=== PATIENT | male | born 1960 | race Caucasian/White ===

== ENCOUNTER 2023-07-23 11:53 | Emergency (ER) | payer OTHER, MEDICAID, SELFPAY ==
[2023-07-23] VITALS (15 sets, daily range): BP systolic 128–146; BP diastolic 10–106; PULSE 104–145; RESP 14–25; TEMP 37.1; O2SAT 95–100; BMI 30.8
--- NOTE | 2023-07-23 12:08 | DI.RAD.S_ITS ---
PROCEDURE: XR CHEST 1V INDICATIONS: chest pain TECHNIQUE: One view of the chest was acquired. COMPARISON: [facility], CR, XR CHEST 1 VIEW, 05/23/2022, 12:54. [facility], CR, XR CHEST 1 VIEW, 06/08/2022, 3:49. [facility], CT, CT ANGIO CHEST PE, 05/23/2022, 15:39. FINDINGS: Surgical changes and devices: None. Lungs and pleura: An incomplete inspiratory result is noted, causing a crowded appearance to the lung markings. No focal infiltrates are seen. No pneumothorax or significant pleural effusions are seen. Mediastinum: The cardiac contours are within normal limits. The aorta demonstrates calcification and tortuosity. Bones and chest wall: Age-appropriate bony degenerative changes are seen. No suspicious bony lesions. Overlying soft tissues appear unremarkable. IMPRESSION: Low lung volumes, without an acute abnormality seen by plain film. Dictated by: Tato Jolly M.D. on 07/23/2023 at 12:09 Approved by: Tato Jolly M.D. on 07/23/2023 at 12:10
--- NOTE | 2023-07-23 12:44 | ED_ITS ---
HPI - Arrhythmia/Palpitations General Chief Complaint: Arrhythmia/Palpitations Stated Complaint: High HR Time Seen by Provider: 07/23/23 12:13 Source: patient and EMS Mode of arrival: Ambulatory History of Present Illness HPI narrative: Patient is a 62-year-old male history of methamphetamine abuse, atrial fibrillation noncompliant medications presenting today with elevated heart rate. He actually went to the methadone clinic to get his methadone but they noted that his heart rate was in the 140s and they sent him to the ER. Patient reports that he has absolutely no chest pain or palpitations. Although when he uses meth he does feel his heart rate speed up. He does have a nonproductive cough but feels like he can not quite get all the phlegm out. He denies any significant shortness of breath. No lower extremity edema. He is not had any fever. He denies any dizziness. Patient reports that he does have some heart history he was cardioverted some point. He has medications waiting for him at [facility] he is got refills on them he just has not picked him up and has not taken medication for about 1 month. Related Data Home Medications Medication Instructions Recorded Confirmed naloxone 4 mg/actuation nasal spray See Rx Instructions .Route .COMPLEX 07/23/23 07/23/23 Allergies Allergy/AdvReac Type Severity Reaction Status Date / Time No Known Drug Allergies Allergy Verified 07/23/23 12:06 Review of Systems Review of Systems ROS Unobtainable: All systems reviewed & are unremarkable except as noted in HPI and below Patient History Social History Smoking Status: Current every day smoker Smoking Status: Current every day smoker tobacco type: cigarettes Substance Use Type: marijuana, heroin and methamphetamine Exam Initial Vital Signs Initial Vital Signs: Vital Signs Temperature 98.8 F 07/23/23 12:00 Pulse Rate 145 H 07/23/23 12:00 Respiratory Rate 24 07/23/23 12:00 Blood Pressure 138/10 L 07/23/23 12:00 Pulse Oximetry 100 07/23/23 12:00 Oxygen Delivery Method Room Air 07/23/23 12:00 GENERAL: Disheveled 62-year-old male HEENT: Head atraumatic,EOMI, pupils reactive, face symmetric, moist mucous membranes CARDIOVASCULAR: irregularly irregular tachycardic no murmur RESPIRATORY: Breath sounds equal bilaterally, no wheezes rales or rhonchi. ABDOMEN: Soft, nontender. Normoactive bowel sounds all 4 quadrants. No guarding or rebound. EXTREMITIES: Normal range of motion, no clubbing or edema. Neurovascularly intact NEUROLOGICAL: Alert and oriented x4. SKIN: Warm, dry, no laceration, no petechiae, no rashes or lesions. Course Orders Ordered: ED Orders 07/23/23 12:08 XR chest 1V Stat EKG-12 Lead Stat 07/23/23 13:00 BNP [NT-proBNP (BNP-Adult 18+)] Stat Complete Blood Count AUTO DIFF Stat Comprehensive Metabolic Panel Stat Lipase Stat Magnesium Stat PTT Partial Thromboplastin Mehdi Stat Prothrombin Time INR Stat Troponin & CK Cardiac Panel Stat 07/23/23 14:00 Urine Drug Screen, Rapid Stat Discontinued Medications Apixaban (Apixaban 5 Mg Tablet) 5 mg PO NOW ONE Stop: 07/23/23 14:39 Last Admin: 07/23/23 14:47 Dose: 5 mg Documented By: GRISELDA Vital Signs Vital signs: Vital Signs - 8 hr 07/23/23 12:00 07/23/23 12:01 07/23/23 12:02 Temperature 98.8 F Pulse Rate 145 H 145 H 145 H Respiratory Rate 24 19 17 Blood Pressure 138/10 L Pulse Oximetry 100 100 100 Oxygen Delivery Method Room Air Room Air 07/23/23 12:02 07/23/23 12:16 07/23/23 12:16 Temperature Pulse Rate 126 H Respiratory Rate 23 Blood Pressure 138/100 H 131/89 Pulse Oximetry 100 Oxygen Delivery Method 07/23/23 12:30 07/23/23 12:30 07/23/23 12:47 Temperature Pulse Rate 108 H 109 H Respiratory Rate 22 15 Blood Pressure 146/98 H Pulse Oximetry 100 100 Oxygen Delivery Method 07/23/23 12:47 07/23/23 13:00 07/23/23 13:00 Temperature Pulse Rate 107 H Respiratory Rate 20 Blood Pressure 136/97 H 135/99 H Pulse Oximetry 100 Oxygen Delivery Method 07/23/23 13:15 07/23/23 13:15 07/23/23 13:30 Temperature Pulse Rate 109 H Respiratory Rate 15 Blood Pressure 135/103 H 128/95 H Pulse Oximetry 100 Oxygen Delivery Method 07/23/23 13:30 07/23/23 13:45 07/23/23 13:45 Temperature Pulse Rate 115 H 136 H Respiratory Rate 14 23 Blood Pressure 145/106 H Pulse Oximetry 100 95 Oxygen Delivery Method 07/23/23 14:00 07/23/23 14:01 07/23/23 14:01 Temperature Pulse Rate 109 H 109 H Respiratory Rate 25 H 22 Blood Pressure 137/96 H Pulse Oximetry 100 100 Oxygen Delivery Method 07/23/23 14:15 07/23/23 14:15 07/23/23 14:30 Temperature Pulse Rate 104 H 105 H Respiratory Rate 24 22 Blood Pressure 135/97 H Pulse Oximetry 100 100 Oxygen Delivery Method 07/23/23 14:30 07/23/23 14:48 07/23/23 14:48 Temperature Pulse Rate 108 H Respiratory Rate 16 Blood Pressure 136/100 H 134/101 H Pulse Oximetry 100 Oxygen Delivery Method MDM - Arrhythmia/Palpitations Lab Data 07/23/23 13:00 07/23/23 13:00 Labs: Lab Results 07/23/23 07/23/23 Range/Units 13:00 14:00 WBC 8.3 (4.5-11.0) X10^3/uL RBC 3.98 L (4.5-5.9) X10^6/uL Hgb 12.2 L (13.5-17.5) g/dL Hct 36.8 L (41-53) % MCV 92.4 (80-100) fL MCH 30.7 (26-34) PG MCHC 33.2 (30-36) % RDW 14.2 (11.6-14.8) % Plt Count 324 (150-400) X10^3/uL Neut % (Auto) 61.3 (50-75) % Lymph % (Auto) 27.7 (25-40) % [place] % (Auto) 8.3 (3-14) % Eos % (Auto) 1.7 L (2-4) % Baso % (Auto) 1.0 (0-2) % Neut # (Auto) 5100 (4108-4186) /uL Lymph # (Auto) 2300 (0398-1094) /uL [place] # (Auto) 700 (0-900) /uL Eos # (Auto) 100 (0-450) /uL Baso # (Auto) 100 (0-100) /uL PT 13.6 H (9.4-12.5) SECONDS INR 1.2 (0.9-1.3) APTT 32 (25.1-36.5) SECONDS Sodium 138 (137-145) mmol/L Potassium 4.1 (3.4-5.1) mmol/L Chloride 106 (98-107) mmol/L Carbon Dioxide 23 (22-32) mmol/L BUN 20 (9-20) mg/dL Creatinine 0.85 (0.66-1.25) mg/dL Estimated GFR > 60 (>60) mL/min BUN/Creatinine Ratio 23.5 H (6-22) Glucose 91 (80-110) mg/dL Calcium 9.1 (8.4-10.2) mg/dL Magnesium 1.8 (1.6-2.3) mg/dL Total Bilirubin 0.6 (0.2-1.3) mg/dL AST 24 (17-59) IU/L ALT 22 (<50) IU/L Alkaline Phosphatase 75 (38-126) U/L Total Creatine Kinase 113 (55-170) U/L Troponin I 0.014 (0.01-0.034) ng/mL NT-Pro-B Natriuret Pep 1460 H (<125) pg/mL Total Protein 7.8 (6.3-8.2) g/dL Albumin 4.2 (3.5-5.0) g/dL Globulin 3.6 (1.7-4.1) g/dL Albumin/Globulin Ratio 1.2 (1.0-2.8) Lipase 52 (23-300) U/L U Opiates 300ng/mL cut Positive H (Negative) Ur Oxycodone Screen Negative (Negative) Urine Methadone Screen Positive H (Negative) Ur Barbiturates Screen Negative (Negative) U Tricyclic Antidepress Negative (Negative) Ur Phencyclidine Scrn Negative (Negative) Ur Amphetamines Screen Positive H (Negative) U Methamphetamines Scrn Positive H (Negative) Ur MDMA Scrn (Ecstasy) Positive H (Negative) U Benzodiazepines Scrn Negative (Negative) Urine Cocaine Screen Negative (Negative) U Marijuana (THC) Screen Negative (Negative) Urine Dip Bedside Urine Glucose Negative Bedside Urine Bilirubin - Negative Bedside Urine Ketone - Negative Urine Specific [place] 1.030 Bedside Urine Occult Blood - Negative Bedside Urine pH 5.5 Bedside Urine Protein - Negative Bedside Urine Urobilinogen - Negative Bedside Urine Nitrite - Negative Bedside Urine Leukocytes - Negative Esterase Imaging Data Chest x-ray: Radiologist's Impresson: PROCEDURE: XR CHEST 1V INDICATIONS: chest pain TECHNIQUE: One view of the chest was acquired. COMPARISON: [facility], CR, XR CHEST 1 VIEW, 05/23/2022, 12:54. [facility], CR, XR CHEST 1 VIEW, 06/08/2022, 3:49. [facility], CT, CT ANGIO CHEST PE, 05/23/2022, 15:39. FINDINGS: Surgical changes and devices: None. Lungs and pleura: An incomplete inspiratory result is noted, causing a crowded appearance to the lung markings. No focal infiltrates are seen. No pneumothorax or significant pleural effusions are seen. Mediastinum: The cardiac contours are within normal limits. The aorta demonstrates calcification and tortuosity. Bones and chest wall: Age-appropriate bony degenerative changes are seen. No suspicious bony lesions. Overlying soft tissues appear unremarkable. IMPRESSION: Low lung volumes, without an acute abnormality seen by plain film. Dictated by: Tato Jolly M.D. on 07/23/2023 at 12:09 Approved by: Tato Jolly M.D. on 07/23/2023 at 12:10 ECG Data Interpretation: Atrial flutter heart rate [address] changes no priors MDM Narrative Medical decision making narrative: Patient 62-year-old male with history of polysubstance abuse including methamphetamine use atrial fibrillation presenting today with elevated heart rate. Initially found to have heart rate in the 145 I ultimately slow down with a any sort of intervention. He completely asymptomatic. He is not been on anticoagulation certainly not a candidate for cardioversion today. Blood work has been reviewed, BNP mildly elevated at 1460 without evidence of congestive heart failure or fluid overload. Negative troponin. X-ray reviewed and negative Patient's heart rate remains stable while in the ED does not need any medication his down. He is completely asymptomatic and noncompliant. He is given 1 dose of Eliquis here in the ED we discussed risks and benefits of anticoagulation. We also discuss risks of continued methamphetamine and drug abuse. He understands he is trying to quit. He is followed closely with the clinic. 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 It helps prevent strokes. However it can make you bleed. 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
[2023-07-23 13:19] LABS: Add Manual Diff / Slide Review NO; Basophils Absolute Auto 100 /uL (0-100); Eosinophils Absolute Auto 100 /uL (0-450); Eosinophils Percent Auto 1.7 % (2-4); Hematocrit 36.8 % (41-53); Hemoglobin 12.2 g/dL (13.5-17.5); Lymphocytes Absolute Auto 2300 /uL (1100-4500); Lymphocytes Percent Auto 27.7 % (25-40); Mean Corpuscular HGB Conc 33.2 % (30-36); Mean Corpuscular Hemoglobin 30.7 PG (26-34); Mean Corpuscular Volume 92.4 fL (80-100); Monocytes Absolute Auto 700 /uL (0-900); Monocytes Percent Auto 8.3 % (3-14); Neutrophils Absolute Auto 5100 /uL (1500-7000); Neutrophils Percent Auto 61.3 % (50-75); Platelet Count 324 X10^3/uL (150-400); Red Blood Cell Count 3.98 X10^6/uL (4.5-5.9); Red Cell Distribution Width 14.2 % (11.6-14.8); White Blood Cell Count 8.3 X10^3/uL (4.5-11.0)
[2023-07-23 13:21] LABS: INR 1.2 (0.9-1.3); Prothrombin Time 13.6 SECONDS (9.4-12.5)
[2023-07-23 13:24] LABS: PTT Partial Thromboplastin Tim 32 SECONDS (25.1-36.5)
[2023-07-23 13:28] LABS: NT-proBNP (BNP-Adult 18+) 1460 pg/mL (<125)
[2023-07-23 13:31] LABS: Alanine Aminotransferase 22 IU/L (<50); Albumin 4.2 g/dL (3.5-5.0); Albumin Globulin Ratio 1.2 (1.0-2.8); Alkaline Phosphatase 75 U/L (38-126); Aspartate Aminotransferase 24 IU/L (17-59); BUN Creatinine Ratio 23.5 (6-22); Bilirubin Total 0.6 mg/dL (0.2-1.3); Blood Urea Nitrogen 20 mg/dL (9-20); Calcium 9.1 mg/dL (8.4-10.2); Carbon Dioxide 23 mmol/L (22-32); Chloride 106 mmol/L (98-107); Creatine Kinase 113 U/L (55-170); Estimated Glomerular Filt Rate > 60 mL/min (>60); Globulin 3.6 g/dL (1.7-4.1); Glucose 91 mg/dL (80-110); HEMOLYSIS < 15 (0-50); Lipase 52 U/L (23-300); Magnesium 1.8 mg/dL (1.6-2.3); Potassium 4.1 mmol/L (3.4-5.1); Sodium 138 mmol/L (137-145); Total Protein 7.8 g/dL (6.3-8.2)
[2023-07-23 13:42] LABS: Troponin I 0.014 ng/mL (0.01-0.034)
--- NOTE | 2023-07-23 14:05 | PC.NURSE ---
Patient resting on stretcher, school lunch monitor and continuous pulse oximetry on and vitals trending. Patient denies any SOB, CP, dizziness, or palpitations.
[2023-07-23 14:22] LABS: UR Morphine/Opiate cutoff 300 Positive (Negative); Ur Creatinine Normal (Normal); Ur Specific Gravity Normal (Normal); Urine Amphetamines Positive (Negative); Urine Cocaine Negative (Negative); Urine Tetrahydrocannabinol Negative (Negative); Urine pH Normal (Normal)
[2023-07-23 14:23] LABS: Urine Barbiturates Negative (Negative); Urine Benzodiazepines Negative (Negative); Urine MDMA Positive (Negative); Urine Methadone Positive (Negative); Urine Methamphetamines Positive (Negative); Urine Phencyclidine Negative (Negative)
[2023-07-23 14:24] LABS: Urine Oxycodone Negative (Negative); Urine Tricyclic Antidepressant Negative (Negative)
[2023-07-23] MEDS: APIXABAN 5 MG TABLET PO (14:47)
== END 2023-07-23 14:56 | disposition home or self-care (01) ==
PROVIDERS: Emergency Provider Emergency Medicine
DX: I48.92 Unspecified atrial flutter (principal); F19.10 Other psychoactive substance abuse, uncomplicated; R07.9 Chest pain, unspecified; Z79.01 Long term (current) use of anticoagulants
CPT/HCPCS: 36415; 71045; 80053; 80305; 81003; 82550; 83690; 83735; 83880; 84484; 85025; 85610; 85730; 93005; 93010; 99284